=== PATIENT | male | born 1980 | race Caucasian/White ===

== ENCOUNTER → 2021-07-10 | Outpatient (CLI) | payer BC, OTHER ==
[~2021-07-10] MED LIST: AGM875T PO; ALBU17AE3 IH; AZIT-21 PO; AZIT250T PO; CEFP500T4 PO; CPR500T PO; FEXO1TAB40 PO; HYDR-2890 PO; HYDR-3731 PO; HYDR1CAP2 PO; METR500T PO; PRD20T PO; PRD50T PO
--- NOTE | 2021-07-10 16:54 | Diagnostic Imaging Report ---
PROCEDURE: MR imaging cervical spine without contrast. TECHNIQUE: Multiplanar, multisequence MR imaging of the cervical spine was performed without contrast. INDICATION: Neck pain. COMPARISON: Cervical spine CT from 05/03/2011 FINDINGS: Cervical spine is normal in alignment. No fracture or marrow replacing process. No Modic endplate changes. The cervical canal is widely patent and the cord is normal in size and signal. Visualized aspects of the brachial plexus are normal. C2-C3: No spinal canal or neuroforaminal narrowing. C3-C4: No spinal canal or neuroforaminal narrowing. C4-C5: No spinal canal or neuroforaminal narrowing. C5-C6: Uncovertebral joint hypertrophy on the right causes mild foraminal narrowing. No spinal stenosis. C6-C7: No spinal canal or neuroforaminal narrowing. C7-T1: No spinal canal or foraminal narrowing. IMPRESSION: 1. Normal cervical cord without impingement. 2. No fracture or osseous abnormality in the cervical spine. 3. Very mild degenerative change at C5-C6. Dictated by: Dictated on workstation # [id number]
== END ==
LOC: RAD 14:37
PROVIDERS: ATTEND Physician Assistant
DX: M47.22 Other spondylosis with radiculopathy, cervical region (principal)
CPT/HCPCS: 72141

== ENCOUNTER 2023-03-30 19:20 | Inpatient (IN) | payer OTHER ==
[~2023-03-30] VITALS: Ht 177.8 cm; Wt 130.1 kg
[2023-03-30 19:40] LABS: BASOPHILS # (AUTO) 0.2 10^3/uL (0.0-0.1); BASOPHILS % (AUTO) 1 % (0-10); EOSINOPHILS # (AUTO) 0.4 10^3/uL (0.0-0.3); EOSINOPHILS % (AUTO) 3 % (0-10); HEMATOCRIT 44 % (40-54); HEMOGLOBIN 14.9 g/dL (13.3-17.7); LYMPHOCYTES # (AUTO) 2.4 10^3/uL (1.0-4.0); LYMPHOCYTES % (AUTO) 17 % (12-44); MEAN CORPUSCULAR HEMOGLOBIN 30 pg (25-34); MEAN CORPUSCULAR HGB CONC 34 g/dL (32-36); MEAN CORPUSCULAR VOLUME 89 fL (80-99); MEAN PLATELET VOLUME 8.9 fL (9.0-12.2); MONOCYTES # (AUTO) 1.1 10^3/uL (0.0-1.0); MONOCYTES % (AUTO) 8 % (0-12); NEUTROPHILS # (AUTO) 10.1 10^3/uL (1.8-7.8); NEUTROPHILS % (AUTO) 71 % (42-75); PLATELET COUNT 413 10^3/uL (130-400); WHITE BLOOD COUNT 14.2 10^3/uL (4.3-11.0)
[2023-03-30] MEDS ORDERED: fentaNYL INJECTION 100 MCG/2 ML VIAL IVP STA (19:52)
[2023-03-30 19:54] LABS: ALBUMIN 4.4 GM/DL (3.2-4.5); POTASSIUM 3.7 MMOL/L (3.6-5.0)
[2023-03-30 19:55] LABS: CLARITY,URINE CLEAR; COLOR,URINE YELLOW; GLUCOSE, URINE (UA) NEGATIVE (NEGATIVE); KETONES,URINE TRACE (NEGATIVE); NITRITE,URINE NEGATIVE (NEGATIVE); PH,URINE 7.5 (5-9); PROTEIN,URINE 2+ (NEGATIVE)
[2023-03-30 19:56] LABS: AMORPHOUS SEDIMENT,UR LARGE AMOR PHOSPHATE /LPF; BACTERIA,URINE TRACE /HPF; BILIRUBIN,URINE 1+ (NEGATIVE); CALCIUM 9.7 MG/DL (8.5-10.1); LEUKOCYTE ESTERASE ,URINE NEGATIVE (NEGATIVE); WBC,URINE 0-2 /HPF
[2023-03-30 19:57] LABS: TOTAL PROTEIN 7.8 GM/DL (6.4-8.2)
[2023-03-30 19:59] LABS: BILIRUBIN,TOTAL 0.6 MG/DL (0.1-1.0); EOSINOPHILS % (MANUAL) 4 %; LYMPHOCYTES % (MANUAL) 21 %; MONOCYTES % (MANUAL) 9 %; NEUTROPHILS % (MANUAL) 66 %; RBC MORPH NORMAL
[2023-03-30 20:00] LABS: CREATININE SERUM 1.09 MG/DL (0.60-1.30)
[2023-03-30] MEDS ORDERED: LACTATED RINGERS 1,000 ML 1,000 ML IV ONE ×2 (20:00→20:45)
[2023-03-30] MEDS ORDERED: ONDANSETRON INJECTION 4 MG/2 ML (SDV) IVP ONE (20:00)
[2023-03-30 20:15] LABS: PROTHROMBIN TIME PATIENT 13.6 SEC (12.2-14.7)
[2023-03-30] MEDS ORDERED: IOHEXOL 350 MG/ML 100 ML (OMNIPAQUE 350) VIAL IV ONE (20:15)
[2023-03-30] MEDS ORDERED: HOLD METFORMIN - RECEIVED CONTRAST 20 ML VIAL IV SCH (20:15)
--- NOTE | 2023-03-30 20:28 | Diagnostic Imaging Report ---
CHEST 1 VIEW, AP/PA ONLY Indication: Fever Comparison: 09/02/2013 Findings: No focal airspace disease in the visualized lungs. No pleural effusion or pneumothorax. Normal cardiomediastinal silhouette. Impression: 1. No acute cardiopulmonary process by portable radiography. Dictated by: Dictated on workstation # [id number]
--- NOTE | 2023-03-30 20:43 | Diagnostic Imaging Report ---
CT Abdomen/pelvis w TECHNIQUE: Multiple contiguous axial images were obtained through the abdomen and pelvis after administration of intravenous contrast. All CT scans use one or more of the following dose optimizing techniques: automated exposure control, MA and/or KvP adjustment based on patient size and exam type or iterative reconstruction. INDICATION: Left-sided abdominal pain. COMPARISON: None available. FINDINGS: Lower chest: The lung bases are clear. No pericardial or pleural effusion. Peritoneum: No free intraperitoneal air or fluid. Liver and biliary system: Diffuse low-attenuation liver is indicative of steatosis. No focal hepatic lesion. Cholecystectomy. Spleen and Pancreas: Spleen is normal. The pancreas enhances normally without mass lesion or peripancreatic inflammatory changes. Adrenals: Normal. tract: The kidneys enhance normally without suspicious mass or obstruction. Urinary bladder is distended without wall thickening. Prostate is normal. GI tract: Stomach is partially filled with air and fluid. No bowel obstruction. Descending colon diverticulosis has an inflamed diverticulum along its anterior aspect, indicative of diverticulitis. No perforation or abscess. Normal appendix. Vasculature and Lymph nodes: Normal caliber aorta. No abdominal or pelvic lymphadenopathy. Musculoskeletal: No concerning osseous lesion. IMPRESSION: 1. Acute diverticulitis of the distal descending colon. 2. No perforation, abscess or fistula formation. 3. Diffuse hepatic steatosis. Dictated by: Dictated on workstation # [id number]
[2023-03-30] MEDS ORDERED: PIPERACILLIN/Tazobactam 4.5 GM in NS (IVPB) 100 ML 100 ML IV ONE (20:45)
--- NOTE | 2023-03-30 21:47 | ED GI ---
General Chief Complaint: Abdominal/GI Problems Stated Complaint: AB PAIN Nursing Triage Note: Patient c/o Lt. side Abd. pain that started 3 wks ago with worsening today. Patient states c/o vomiting and diarrhea with the vomiting starting last week and diarrhea 2 wks. Patient c/o blood in his stool x 2 wks. Patient denies any known fevers. Patient denies any Hx. of colitis or diverticulitis. Patient states he has diarrhea with food intake. Source of Information: Patient Exam Limitations: No Limitations History of Present Illness Date Seen by Provider: Mar 30, 2023 Time Seen by Provider: 19:28 Initial Comments PT ARRIVES VIA POV FROM HOME WITH FOR THE LAST 3 WEEKS PT HAS HAD: -ABDOMINAL PAIN--MOSTLY ON LEFT SIDE, RADIATING TO LEFT FLANK--PAIN IS MUCH WORSE TODAY -NAUSEA, VOMITING, DIARRHEA--VOMITING BEGAN 1 WEEK AGO, NO VOMITING TODAY. STILL NAUSEATED. DIARRHEA 6-8 TIMES TODAY. HAS HAD BLOOD IN STOOLS FOR THE LAST 2 WEEKS -DECREASED APPETITE--HAD NOT EATEN FOR THE LAST 4 DAYS. TRIED EATING A LITTLE BIT TODAY. FOOD MAKES PAIN MUCH WORSE. STILL DRINKING LIQUIDS NO URINARY SYMPTOMS AND VOIDING A NORMAL AMOUNT PT HAS NOT CHECKED TEMP, IS NOT SURE IF HE HAS FELT LIKE HE HAD FEVER OR NOT HAS NOT SOUGHT CARE UNTIL TODAY PAIN IS WORSE TODAY HAS NOT TAKEN ANYTHING FOR SYMPTOMS NO HISTORY OF SIMILAR PT HAS HAD PRIOR CHOLECYSTECTOMY NO CHRONIC MEDICAL PROBLEMS OR DAILY MEDICATIONS PT IS NOT ON ASPIRIN OR BLOOD THINNERS PCP: DR. CHRISTIAN IN [place] Allergies and Home Medications Allergies Coded Allergies: duloxetine (Verified Allergy, Intermediate, Hives, 03/30/23) sulfamethoxazole (Verified Allergy, Intermediate, Hives, 03/30/23) trimethoprim (Verified Allergy, Intermediate, Hives, 03/30/23) ciprofloxacin (Verified Allergy, Unknown, 03/30/23) Patient Home Medication List Home Medication List Reviewed: Yes Amoxicillin/Potassium Clav (Amox Tr-K Clv 875-125 mg Tab) 875 Mg-125 Mg Tablet, 1 EACH PO BID Prescribed by: ESTELA ALVAREZ on 03/30/23 2274 Azithromycin (Zithromax) 250 Mg Tablet, 250 MG PO UD Prescribed by: STEPHANIE RAMÍREZ on 01/08/16 1059 Fexofenadine/Pseudoephedrine (Vivien-D 12 Hour Tablet) 1 Each Tab.er.12h, 1 EACH PO BID PRN for CONGESTION Prescribed by: STEPHANIE RAMÍREZ on 01/08/16 1059 Hydrocodone/Acetaminophen (Hydrocodone-Acetamin 7.5-325) 7.5 Mg-325 Mg Tablet, 1 EACH PO Q4H PRN for PAIN-BREAKTHROUGH Prescribed by: ESTELA ALVAREZ on 03/30/23 2324 Prednisone (Prednisone) 20 Mg Tab, 40 MG PO DAILY Prescribed by: STEPHANIE RAMÍREZ on 01/08/16 1059 Review of Systems Review of Systems Constitutional: see HPI EENTM: No Symptoms Reported Respiratory: No Symptoms Reported Cardiovascular: No Symptoms Reported Gastrointestinal: See HPI, Abdominal Pain, Diarrhea, Nausea, Poor Appetite, Vomiting Genitourinary: No Symptoms Reported Musculoskeletal: no symptoms reported Skin: no symptoms reported Psychiatric/Neurological: No Symptoms Reported Endocrine: No Symptoms Reported Hematologic/Lymphatic: See HPI Past Hlundiz-Pvjduf-Egphhc Hx Patient Social History Tobacco Use?: Yes Tobacco type used: Cigarettes Smoking Status: Current Someday Smoker Use of E-Cig and/or Vaping dev: No Substance use?: Yes Substance type: Marijuana Substance frequency: Couple times a week Alcohol Use?: No Immunizations Up To Date Influenza Vaccine Up-to-Date: No; Not Current Past Medical History Surgeries: Yes Gallbladder Respiratory: No Cardiac: No Neurological: No Reproductive Disorders: No Sexually Transmitted Disease: No HIV/AIDS: No Genitourinary: No Gastrointestinal: Yes (S/P LETICIA) Gall Bladder Disease Musculoskeletal: No Endocrine: No HEENT: No Loss of Vision: Denies Hearing Impairment: Denies Cancer: No Psychosocial: No Integumentary: No Blood Disorders: No Adverse Reaction/Blood Tranf: No Physical Exam Vital Signs Vital Signs - First Documented 03/30/23 03/30/23 19:25 20:13 Temp 37.9 Pulse 122 Resp 18 B/P (MAP) 151/109 (123) Pulse Ox 99 O2 Delivery Room Air Capillary Refill : Height/Weight/BMI Height: 5'10" Weight: 250lbs. oz. 113.818658dc; BMI Method:Stated General Appearance: WD/WN, no apparent distress HEENT: PERRL/EOMI, other (ORAL MUCOSA MOIST) Neck: normal inspection Respiratory: normal breath sounds, no respiratory distress, no accessory muscle use Cardiovascular: no edema, no murmur, tachycardia Gastrointestinal: soft, no organomegaly; No distended; guarding, rebound, tenderness (DIFFUSE LEFT SIDED TENDERNESS, EPIGASTRIC AND SUPRAPUBIC TENDERNESS); No hernia, No mass Extremities: normal inspection, normal capillary refill Back: no vertebral tenderness, CVA tenderness (L) Neurologic/Psychiatric: switchboard troubleshooter II-XII nml as tested, no motor/sensory deficits, alert, normal mood/affect, oriented x 3 Skin: normal color, warm/dry (VERY WARM, FLUSHED); No rash; other (GOOD TURGOR) Focused Exam Sepsis Stage: Sepsis Possible Source: GI Tract/Intra-Abdominal Lactate Level 03/30/23 20:13: Lactic Acid Level 1.55 Time of Focused Exam: 20:35 Respiratory: Normal Breath Sounds, No Accessory Muscle Use, No Respiratory Distress Cardiovascular: Regular Rate, Rhythm, No Murmur Capillary Refill: Less Than 3 Seconds Skin: normal color, warm/dry Lactic Acid Level Laboratory Tests Test 03/30/23 20:13 Lactic Acid Level 1.55 MMOL/L (0.50-2.00) Within 3hrs of presentation: Admin fluids, Admin ABX, Blood cultures prior to ABX's, Focus exam, Lactate level Progress/Results/Core Measures Results/Orders Lab Results Laboratory Tests Test 03/30/23 19:34 03/30/23 20:13 Range/Units White Blood Count 14.2 H 4.3-11.0 10^3/uL Red Blood Count 5.01 4.30-5.52 10^6/uL Hemoglobin 14.9 13.3-17.7 g/dL Hematocrit 44 40-54 % Mean Corpuscular Volume 89 80-99 fL Mean Corpuscular Hemoglobin 30 25-34 pg Mean Corpuscular Hemoglobin Concent 34 32-36 g/dL Red Cell Distribution Width 12.9 10.0-14.5 % Platelet Count 413 H 130-400 10^3/uL Mean Platelet Volume 8.9 L 9.0-12.2 fL Immature Granulocyte % (Auto) 0 % Neutrophils (%) (Auto) 71 42-75 % Lymphocytes (%) (Auto) 17 12-44 % Monocytes (%) (Auto) 8 0-12 % Eosinophils (%) (Auto) 3 0-10 % Basophils (%) (Auto) 1 0-10 % Neutrophils # (Auto) 10.1 H 1.8-7.8 10^3/uL Lymphocytes # (Auto) 2.4 1.0-4.0 10^3/uL Monocytes # (Auto) 1.1 H 0.0-1.0 10^3/uL Eosinophils # (Auto) 0.4 H 0.0-0.3 10^3/uL Basophils # (Auto) 0.2 H 0.0-0.1 10^3/uL Immature Granulocyte # (Auto) 0.1 0.0-0.1 10^3/uL Neutrophils % (Manual) 66 % Lymphocytes % (Manual) 21 % Monocytes % (Manual) 9 % Eosinophils % (Manual) 4 % Blood Morphology Comment NORMAL Prothrombin Time 13.6 12.2-14.7 SEC INR Comment 1.0 0.8-1.4 Activated Partial Thromboplast Time 42 H 24-35 SEC Urine Color YELLOW Urine Clarity CLEAR Urine pH 7.5 5-9 Urine Specific [place] 1.015 L 1.016-1.022 Urine Protein 2+ H NEGATIVE Urine Glucose (UA) NEGATIVE NEGATIVE Urine Ketones TRACE H NEGATIVE Urine Nitrite NEGATIVE NEGATIVE Urine Bilirubin 1+ H NEGATIVE Urine Urobilinogen 1.0 < = 1.0 MG/DL Urine Leukocyte Esterase NEGATIVE NEGATIVE Urine RBC (Auto) NEGATIVE NEGATIVE Urine RBC NONE /HPF Urine WBC 0-2 /HPF Urine Crystals PRESENT H /LPF Urine Amorphous Sediment LARGE GUERDA PHOSPHATE H /LPF Urine Bacteria TRACE /HPF Urine Casts NONE /LPF Urine Mucus LARGE H /LPF Urine Culture Indicated NO Sodium Level 142 135-145 MMOL/L Potassium Level 3.7 3.6-5.0 MMOL/L Chloride Level 106 98-107 MMOL/L Carbon Dioxide Level 24 21-32 MMOL/L Anion Gap 12 5-14 MMOL/L Blood Urea Nitrogen 10 7-18 MG/DL Creatinine 1.09 0.60-1.30 MG/DL Estimat Glomerular Filtration Rate 87 BUN/Creatinine Ratio 9 Glucose Level 125 H 70-105 MG/DL Calcium Level 9.7 8.5-10.1 MG/DL Corrected Calcium 9.4 8.5-10.1 MG/DL Total Bilirubin 0.6 0.1-1.0 MG/DL Aspartate Amino Transf (AST/SGOT) 40 H 5-34 U/L Alanine Aminotransferase (ALT/SGPT) 76 H 0-55 U/L Alkaline Phosphatase 60 40-136 U/L Total Protein 7.8 6.4-8.2 GM/DL Albumin 4.4 3.2-4.5 GM/DL Amylase Level 48 25-125 U/L Lipase 41 8-78 U/L Lactic Acid Level 1.55 0.50-2.00 MMOL/L My Orders Orders - NOEMI RUBIN DO Ed Iv/Invasive Line Start (03/30/23 19:27) Amylase (03/30/23 19:27) Cbc With Automated Diff (03/30/23:27) Comprehensive Metabolic Panel (03/30/23:27) Lipase (03/30/23 19:27) Ua Culture If Indicated (03/30/23:) Manual Differential (03/30/23:34) Monitor-Rhythm Ecg Trace Only (03/30/23 19:52) Ed Iv/Invasive Line Start (03/30/23 19:52) Lactated Ringers 1,000 Ml (Lactated Ring (03/30/23 20:00) Ondansetron Injection (Ondansetron Inj (03/30/23 20:00) Fentanyl Injection (Fentanyl Injection (03/30/23 19:52) Blood Culture (03/30/23 19:53) Urine Culture (03/30/23 19:53) Protime With Inr (03/30/23 19:53) Partial Thromboplastin Time (03/30/23 19:53) Chest 1 View, Ap/Pa Only (03/30/23 19:53) Ed Iv/Invasive Line Start (03/30/23 19:53) Ed Iv/Invasive Line Start (03/30/23 19:53) Vital Signs Adult Sepsis Patie Q15M (03/30/23 19:53) O2 (03/30/23 19:53) Remove Rings In Anticipation O (03/30/23 19:53) Lactic Acid Analyzer (03/30/23 19:53) Ct Abdomen/Pelvis W (03/30/23 20:01) Piperacillin/Tazobactam (Piperacillin/Ta (03/30/23 20:45) Ed Iv/Invasive Line Start (03/30/23 20:43) Vital Signs Adult Sepsis Patie Q15M (03/30/23 20:43) Remove Rings In Anticipation O (03/30/23 20:43) Lactated Ringers 1,000 Ml (Lactated Ring (03/30/23 20:45) Medications Given in ED Current Medications Medications Dose Ordered Sig/Clara Route Start Time Stop Time Status Last Admin Dose Admin Lactated Ringer's 1,000 ml @ 0 mls/hr Q0M ONCE IV 03/30/23 20:00 03/30/23 20:01 DC 03/30/23 20:19 0 MLS/HR Ondansetron HCl 8 mg ONCE ONCE IVP 03/30/23 20:00 03/30/23 20:01 DC 03/30/23 20:19 8 MG Piperacillin Sod/ Tazobactam Sod 4.5 gm/Sodium Chloride 100 ml @ 200 mls/hr ONCE ONCE IV 03/30/23 20:45 03/30/23 21:14 DC 03/30/23 21:28 200 MLS/HR Vital Signs/I&O 03/30/23 03/30/23 19:25 20:13 Temp 37.9 Pulse 122 Resp 18 B/P (MAP) 151/109 (123) Pulse Ox 99 O2 Delivery Room Air Room Air 03/31/23 00:00 Intake Total 400 ml Balance 400 ml Blood Pressure Mean: 123 Progress Progress Note : Progress Note VITALS ON ARRIVAL: TEMP 37.9=100.2, HR 124, RR 18, BP 151/109, O2 SAT 99% ON RO OM AIR SEPSIS PROTOCOL INITIATED GIVEN: -IV FLUIDS -ZOFRAN -FENTANYL -ZOSYN LABS: -CBC WITH WBC 14.2, HGB 14.9, PLT 413,000 -CMP WITH GLU 125, AST 40, ALT 76, OTHERWISE NORMAL -LACTIC ACID 1.55 -PT/PTT/INR 13.6/40/1.0 -UA WITH 2+ PROTEIN, TR KETONES, 1+ BILE CT SHOWS DIVERTICULITIS WITHOUT PERFORATION OR ABSCESS OR FREE AIR CXR IS NORMAL DISCUSSED TEST RESULTS, ANTICIPATED COURSE, NEED FOR ADMIT AND PT IS AGREEABLE TO PLAN Diagnostic Imaging Comments CXR--PER RADIOLOGIST REPORT AT 2046 Findings: No focal airspace disease in the visualized lungs. No pleural effusion or pneumothorax. Normal cardiomediastinal silhouette. Impression: 1. No acute cardiopulmonary process by portable radiography. CT ABDOMEN/PELVIS--PER RADIOLOGIST REPORT AT 2046 FINDINGS: Lower chest: The lung bases are clear. No pericardial or pleural effusion. Peritoneum: No free intraperitoneal air or fluid. Liver and biliary system: Diffuse low-attenuation liver is indicative of steatosis. No focal hepatic lesion. Cholecystectomy. Spleen and Pancreas: Spleen is normal. The pancreas enhances normally without mass lesion or peripancreatic inflammatory changes. Adrenals: Normal. tract: The kidneys enhance normally without suspicious mass or obstruction. Urinary bladder is distended without wall thickening. Prostate is normal. GI tract: Stomach is partially filled with air and fluid. No bowel obstruction. Descending colon diverticulosis has an inflamed diverticulum along its anterior aspect, indicative of diverticulitis. No perforation or abscess. Normal appendix. Vasculature and Lymph nodes: Normal caliber aorta. No abdominal or pelvic lymphadenopathy. Musculoskeletal: No concerning osseous lesion. IMPRESSION: 1. Acute diverticulitis of the distal descending colon. 2. No perforation, abscess or fistula formation. 3. Diffuse hepatic steatosis. Reviewed: Reviewed by Me Departure Communication (Admissions) 2047--SPOKE WITH DR. ALVAREZ, SURGEON, ACCEPTS PT FOR ADMIT Impression Primary Impression: DIVERTICULITIS Additional Impression: Sepsis Disposition: ADMITTED INPATIENT Condition: Stable Admissions Decision to Admit Reason: Admit from ER (General) Decision to Admit/Date: Mar 30, 2023 Time/Decision to Admit Time: 20:50 Departure-Patient Inst. Referrals: JOSEPH CHRISTIAN MD (PCP/Family) Primary Care Physician Scripts Hydrocodone/Acetaminophen (Hydrocodone-Acetamin 7.5-325) 7.5 Mg-325 Mg Tablet 1 EACH PO Q4H PRN for PAIN-BREAKTHROUGH, #35 TAB Prov: ESTELA ALVAREZ MD 03/30/23 Amoxicillin/Potassium Clav (Amox Tr-K Clv 875-125 mg Tab) 875 Mg-125 Mg Tablet 1 EACH PO BID, #20 TAB Prov: ESTELA ALVAREZ MD 03/30/23 NOEMI RUBIN DO Mar 30, 2023 21:47
[2023-03-30 22:16] VITALS: BP 158/88
[2023-03-30] MEDS ORDERED: fentaNYL INJECTION 100 MCG/2 ML VIAL ONE (22:26)
[2023-03-30] MEDS ORDERED: fentaNYL INJECTION 100 MCG/2 ML VIAL IVP PRN (22:30)
[2023-03-30] MEDS ORDERED: AMOX1TAB12 PO (23:24)
[2023-03-30] MEDS ORDERED: HYDR-3817 PO (23:24)
--- NOTE | 2023-03-30 23:25 | Discharge Inst-Surgical ---
D/C Lap Instructions-KIDO New, Converted, or Re-Newed RX: RX on Chart Follow Up Appt in 2 weeks Activity as tolerated Low residue diet for next 6 weeks. Avoid Alcohol, Caffeine, Spicy [place] and Acid foods. Drink 64 fluid oz or more of fluids per day. Symptoms to Report: Fever over 101 degree F, Nausea/Vomiting If any problems/questions: Contact your physician or go to Emergency Room ESTELA ALVAREZ MD Mar 30, 2023 23:25
[2023-03-30] MEDS ORDERED: ONDANSETRON INJECTION 4 MG/2 ML (SDV) IV PRN (23:30)
[2023-03-30] MEDS ORDERED: ACETAMINOPHEN 500 MG TABLET PO PRN (23:30)
[2023-03-31] VITALS: BP 129/66
--- NOTE | 2023-03-31 00:12 | HISTORY AND PHYSICAL ---
ATTENDING PRIMARY CARE PHYSICIAN: Dr. Adenike Arias MD HISTORY OF PRESENT ILLNESS: The patient is a 42-year-old male who presented to the Emergency Department with left lower quadrant abdominal pain for the past 3 weeks; however, in the past few days, this has worsened. He states that he also developed nausea and vomiting as well as diarrhea. He states that with the diarrhea he has also noticed some red blood per rectum as well. He does not report ever having these symptoms before in the past. He does not report any recent travel as well as no change in drinking water source as well as food sources. A CT scan was performed, which did show sigmoid diverticulitis with no abscess or any signs of microperforation. This is consistent with a noncomplicated sigmoid diverticulitis. PAST MEDICAL HISTORY: Depression. PAST SURGICAL HISTORY: Laparoscopic cholecystectomy. ALLERGIES: DULOXETINE, BACTRIM, CIPROFLOXACIN. MEDICATIONS: Azithromycin 250 mg daily, fexofenadine b.i.d. p.r.n., prednisone 20 mg daily. SOCIAL HISTORY: Positive cigarette smoke and marijuana. Negative alcohol. FAMILY HISTORY: Noncontributory. REVIEW OF SYSTEMS: A well-nourished male, currently in no acute distress. He is not experiencing shortness of breath or difficulty breathing. No chest pain, palpitations or diaphoresis. A 2-week history of pain in the left lower abdominal quadrant, which has worsened over time. This has also been associated with several episodes of nausea and vomiting as well as diarrhea with self-limited red blood per rectum. No dark tarry stools. No fever, chills, no recent inadvertent weight loss. All other review of systems negative. PHYSICAL EXAMINATION: VITAL SIGNS: Temperature 37.4, blood pressure 158/88, pulse 90, respirations 18, pulse ox 96% on room air. CHEST: Few scattered wheezes bilaterally. HEART: Regular. No murmurs. EXTREMITIES: No lower extremity edema. Negative Homans sign. HEENT: No scleral icterus. No cervical lymphadenopathy. ABDOMEN: Soft, nondistended. There is pain in the left lower abdominal quadrant upon palpation. No voluntary guarding, no rebound. No hernias. SKIN: Warm, dry. LABORATORY DATA: WBC 14.2, hemoglobin 14.9, hematocrit 44, platelets 413. BUN 10, creatinine 1.09. ASSESSMENT AND PLAN: A 42-year-old male with noncomplicated sigmoid diverticulitis. We will proceed with conservative management with bowel rest with clear liquid diet as well as IV antibiotics. Once clinical improvement, we will advance to a low residue diet. We will then have him follow up in the next several weeks to schedule a followup colonoscopy to rule out any potential neoplastic lesions. Long-term, he will need to proceed with a high-fiber diet with at least 30 g of fiber daily as well as significant amounts of water to promote soft consistency stools on a daily basis in hopes of preventing further propagation of diverticulosis as well as recurrent episodes of diverticulitis. Job ID: [id number] DocumentID: [id number] Dictated Date: 03/30/2023 23:19:10 Orthopedic Physician Assistant Date: 03/31/2023 00:10:00 Dictated By: ESTELA ALVAREZ MD
[2023-03-31] MEDS: fentaNYL INJECTION 100 MCG/2 ML VIAL IVP PRN ×3 (01:24→11:17)
[2023-03-31] MEDS: HYDROcodone/ACETAMINOPHEN 7.5 MG/325 MG TABLET PO PRN ×3 (01:24→11:18)
[2023-03-31] MEDS: LACTATED RINGERS 1,000 ML 1,000 ML IV SCH ×2 (01:26→06:44)
[2023-03-31] MEDS: PIPERACILLIN/Tazobactam 4.5 GM in NS (IVPB) 100 ML 100 ML IV SCH ×2 (03:20→11:17)
[2023-03-31 04:00] VITALS: BP 130/81
[2023-03-31 06:09] LABS: BASOPHILS # (AUTO) 0.1 10^3/uL (0.0-0.1); BASOPHILS % (AUTO) 1 % (0-10); EOSINOPHILS # (AUTO) 0.3 10^3/uL (0.0-0.3); EOSINOPHILS % (AUTO) 3 % (0-10); HEMATOCRIT 41 % (40-54); HEMOGLOBIN 13.5 g/dL (13.3-17.7); LYMPHOCYTES # (AUTO) 1.7 10^3/uL (1.0-4.0); LYMPHOCYTES % (AUTO) 14 % (12-44); MEAN CORPUSCULAR HEMOGLOBIN 30 pg (25-34); MEAN CORPUSCULAR HGB CONC 33 g/dL (32-36); MEAN CORPUSCULAR VOLUME 90 fL (80-99); MEAN PLATELET VOLUME 9.3 fL (9.0-12.2); MONOCYTES # (AUTO) 1.1 10^3/uL (0.0-1.0); MONOCYTES % (AUTO) 9 % (0-12); NEUTROPHILS # (AUTO) 8.6 10^3/uL (1.8-7.8); NEUTROPHILS % (AUTO) 73 % (42-75); PLATELET COUNT 365 10^3/uL (130-400); WHITE BLOOD COUNT 11.9 10^3/uL (4.3-11.0)
[2023-03-31 06:26] LABS: ALBUMIN 3.9 GM/DL (3.2-4.5); POTASSIUM 4.1 MMOL/L (3.6-5.0)
[2023-03-31 06:32] LABS: CREATININE SERUM 1.02 MG/DL (0.60-1.30)
[2023-03-31 07:51] VITALS: BP 135/86
[2023-03-31] MEDS ORDERED: PANTOPRAZOLE INJECTION 40 MG VIAL IV SCH (09:00)
--- NOTE | 2023-03-31 11:00 | Progress Note ---
Subjective Date Seen by a Provider: Mar 31, 2023 Time Seen by a Provider: 10:00 Subjective/Events-last exam Patient seen with Dr. Cain. Patient reports still having some LLQ pain but is better than yesterday. No blood in his stool. Never had a colonoscopy before. Reports some nausea but no vomiting. Ambulating well. Focused Exam Lactate Level 03/30/23 20:13: Lactic Acid Level 1.55 Time of Focused Exam: 20:35 Objective Exam Vital Signs Date Time Temp Pulse Resp B/P (MAP) Pulse Ox O2 Delivery O2 Flow Rate FiO2 03/31/23 08:00 Room Air 03/31/23 07:51 37.0 78 17 135/86 (102) 94 Room Air 03/31/23 07:00 73 03/31/23 04:00 36.7 81 20 130/81 (97) 95 Room Air 03/31/23 00:38 80 03/31/23 00:00 37.3 84 20 129/66 (87) 97 Room Air 03/30/23 22:44 90 03/30/23 22:37 Room Air 03/30/23 22:16 37.4 98 18 158/88 (111) 96 Room Air 03/30/23 20:13 99 Room Air 03/30/23 19:25 37.9 122 18 151/109 (123) Room Air I & O 03/31/23 07:00 Intake Total 1600 ml Output Total 250 ml Balance 1350 ml Capillary Refill : Less Than 3 Seconds General Appearance: No Apparent Distress, WD/WN Neck: Normal Inspection, Supple Respiratory: No Accessory Muscle Use, No Respiratory Distress Gastrointestinal: normal bowel sounds, soft, tenderness (LLQ) Extremity: Normal Inspection, Normal Range of Motion Neurologic/Psychiatric: Alert, Oriented x3 Skin: Normal Color, Warm/Dry Results Lab Laboratory Tests 03/30/23 19:34: White Blood Count 14.2H, Red Blood Count 5.01, Hemoglobin 14.9, Hematocrit 44, Mean Corpuscular Volume 89, Mean Corpuscular Hemoglobin 30, Mean Corpuscular Hem oglobin Concent 34, Red Cell Distribution Width 12.9, Platelet Count 413H, Mean Platelet Volume 8.9L, Immature Granulocyte % (Auto) 0, Neutrophils (%) (Auto) 71, Lymphocytes (%) (Auto) 17, Monocytes (%) (Auto) 8, Eosinophils (%) (Auto) 3, Basophils (%) (Auto) 1, Neutrophils # (Auto) 10.1H, Lymphocytes # (Auto) 2.4, Monocytes # (Auto) 1.1H, Eosinophils # (Auto) 0.4H, Basophils # (Auto) 0.2H, Immature Granulocyte # (Auto) 0.1, Neutrophils % (Manual) 66, Lymphocytes % (Manual) 21, Monocytes % (Manual) 9, Eosinophils % (Manual) 4, Blood Morphology Comment NORMAL, Prothrombin Time 13.6, INR Comment 1.0, Activated Partial Thromboplast Time 42H, Urine Color YELLOW, Urine Clarity CLEAR, Urine pH 7.5, Urine Specific [place] 1.015L, Urine Protein 2+H, Urine Glucose (UA) NEGATIVE, Urine Ketones TRACEH, Urine Nitrite NEGATIVE, Urine Bilirubin 1+H, Urine Urobilinogen 1.0, Urine Leukocyte Esterase NEGATIVE, Urine RBC (Auto) NEGATIVE, Urine RBC NONE, Urine WBC 0-2, Urine Crystals PRESENTH, Urine Amorphous Sediment LARGE GUERDA PHOSPHATEH, Urine Bacteria TRACE, Urine Casts NONE, Urine Mucus LARGEH, Urine Culture Indicated NO, Sodium Level 142, Potassium Level 3.7, Chloride Level 106, Carbon Dioxide Level 24, Anion Gap 12, Blood Urea Nitrogen 10, Creatinine 1.09, Estimat Glomerular Filtration Rate 87, BUN/Creatinine Ratio 9, Glucose Level 125H, Calcium Level 9.7, Corrected Calcium 9.4, Total Bilirubin 0.6, Aspartate Amino Transf (AST/SGOT) 40H, Alanine Aminotransferase (ALT/SGPT) 76H, Alkaline Phosphatase 60, Total Protein 7.8, Albumin 4.4, Amylase Level 48, Lipase 41 03/30/23 20:13: Lactic Acid Level 1.55 03/31/23 05:50: White Blood Count 11.9H, Red Blood Count 4.54, Hemoglobin 13.5, Hematocrit 41, Mean Corpuscular Volume 90, Mean Corpuscular Hemoglobin 30, Mean Corpuscular Hemoglobin Concent 33, Red Cell Distribution Width 13.1, Platelet Count 365, Mean Platelet Volume 9.3, Immature Granulocyte % (Auto) 0, Neutrophils (%) (Auto) 73, Lymphocytes (%) (Auto) 14, Monocytes (%) (Auto) 9, Eosinophils (%) (Auto) 3, Basophils (%) (Auto) 1, Neutrophils # (Auto) 8.6H, Lymphocytes # (Auto) 1.7, Monocytes # (Auto) 1.1H, Eosinophils # (Auto) 0.3, Basophils # (Auto) 0.1, Immature Granulocyte # (Auto) 0.1, Sodium Level 142, Potassium Level 4.1, Chloride Level 108H, Carbon Dioxide Level 26, Anion Gap 8, Blood Urea Nitrogen 9, Creatinine 1.02, Estimat Glomerular Filtration Rate 94, BUN/Creatinine Ratio 9, Glucose Level 95, Calcium Level 9.0, Corrected Calcium 9.1, Total Bilirubin 1.0, Aspartate Amino Transf (AST/SGOT) 35H, Alanine Aminotransferase (ALT/SGPT) 63H, Alkaline Phosphatase 52, Total Protein 7.0, Albumin 3.9 Assessment/Plan Assessment/Plan Assess & Plan/Chief Complaint A 42 year old male with Acute uncomplicated diverticulitis VSS WBC 11.9 Will start clear liquid diet, if patient tolerates diet patient can be DC'd home with abx, pain and nausea meds Low residual diet for 6 weeks KIAN RAMSEY MANAGER MEDICAL Mar 31, 2023 11:00
[2023-03-31 11:53] VITALS: BP 127/83
== END 2023-03-31 13:10 | disposition home or self-care (01) | DRG 392 ==
LOC: EDUNIT# 19:20 → ER 19:23 → 4TH 22:00
PROVIDERS: ADMIT Surgery; ATTEND Surgery
DX: K57.32 Diverticulitis of large intestine without perforation or abscess without bleeding (principal); Z90.49 Acquired absence of other specified parts of digestive tract; F17.210 Nicotine dependence, cigarettes, uncomplicated
CPT/HCPCS: 36415; 71045; 74177; 80053; 81000; 82150; 83605; 83690; 85007; 85025; 85027; 85610; 85730; 87040; 93041; G0378